=== PATIENT | female | born 1995 | race Caucasian/White ===

== ENCOUNTER 2017-05-16 21:06 | Inpatient (IN) | payer MEDICAID ==
[2017-05-16 21:07] VITALS: BMI 27.1
[2017-05-16] MEDS ORDERED: Sodium Chloride 0.9% 500 ML IV ONE (21:46)
--- NOTE | 2017-05-16 21:52 | C.PDOC ---
History Of Present Illness 21 year old female with PMHx of cholelithiasis presents to the ED c/o abdominal pain. pain intermittant to ruq. Patient denies fever, chills, other complaints. Time Seen by Provider: 05/16/17 21:39 Chief Complaint (Nursing): Medical Clearance History Per: Patient History/Exam Limitations: no limitations Onset/Duration Of Symptoms: Days Current Symptoms Are (Timing): Still Present Recent travel outside of the [place]: No Additional History Per: Patient Past Medical History Reviewed: Historical Data, Nursing Documentation, Vital Signs Vital Signs: Last Vital Signs Temp 98 F 05/16/17 21:21 Pulse 92 H 05/16/17 22:47 Resp 18 05/16/17 22:47 BP 126/65 05/16/17 22:47 Pulse Ox 99 05/16/17 22:47 - Medical History PMH: Asthma Surgical History: No Surg Hx Family History: States: Unknown Family Hx - Social History Hx Alcohol Use: No Hx Substance Use: No - Immunization History Hx Tetanus Toxoid Vaccination: No Hx Influenza Vaccination: No Hx Pneumococcal Vaccination: No Review Of Systems Except As Marked, All Systems Reviewed And Found Negative. Constitutional: Negative for: Fever Gastrointestinal: Positive for: Abdominal Pain Physical Exam - Physical Exam Appears: Non-toxic, No Acute Distress Skin: Normal Color, Warm, Dry Head: Atraumatic, Normacephalic Eye(s): bilateral: Normal Inspection Nose: No Discharge Oral Mucosa: Moist Neck: Normal ROM, Supple Chest: Symmetrical Cardiovascular: Rhythm Regular, No Murmur Respiratory: Normal Breath Sounds, No Rales, No Rhonchi, No Wheezing Gastrointestinal/Abdominal: Soft, Tenderness (Mild RUQ), No Guarding, No Rebound Extremity: Normal ROM, No Tenderness, No Swelling Neurological/Psych: Oriented x3 ED Course And Treatment - Laboratory Results Result Diagrams: 05/16/17 22:08 05/16/17 22:08 O2 Sat by Pulse Oximetry: 100 (On RA) Pulse Ox Interpretation: Normal Medical Decision Making Medical Decision Making: Impression: cholelithiasis- labs imaging Plan: * Labs * EKG * CXR * IV fluids * UA case discussed with dr shen. accepts to his service. Disposition - Disposition Disposition: HOSPITALIZED Disposition Time: 22:52 Condition: STABLE Forms: [employer] (Pakistani) - Clinical Impression Clinical Impression: Cholelithiasis - Scribe Statement The provider has reviewed the documentation as recorded by the Scribe Chon Christianson All medical record entries made by the Scribe were at my direction and personally dictated by me. I have reviewed the chart and agree that the record accurately reflects my personal performance of the history, physical exam, medical decision making, and the department course for this patient. I have also personally directed, reviewed, and agree with the discharge instructions and disposition. Decision To Admit - Pt Status Changed To: Hospital Disposition Of: Inpatient - Admit Certification Admit to Inpatient:: After my assessment, the patient will require hospitalization for at least two midnights. This is because of the severity of symptoms shown, intensity of services needed, and/or the medical risk in this patient being treated as an outpatient. - InPatient: Physician Admission Certification: I certify that this patient requires 2 or more midnights of care for the following reason:: needs possible or - . Bed Request Type: Regular Admitting Physician: Rik Doyle Patient Diagnosis: Cholelithiasis
[2017-05-16] MEDS ORDERED: Piperacillin/Tazobact 3.375 gm 100 ML IVPB STA (21:54)
[2017-05-16 22:11] LABS: BASO # 0.1 K/uL (0.0-0.2); BASO % 0.7 % (0.0-2.0); EOS # 0.1 K/uL (0.0-0.7); EOS % 1.3 % (0.0-4.0); HEMOGLOBIN 13.2 g/dL (11.0-16.0); LYMPH # 3.3 K/uL (1.0-4.3); LYMPH % 32.6 % (20.0-40.0); MEAN CELL VOLUME 84.9 fL (81.0-99.0); MONO # 0.9 K/uL (0.0-0.8); MONO % 8.6 % (0.0-10.0); NEUT # 5.8 K/uL (1.8-7.0); NEUT % 56.8 % (50.0-75.0); RBC 4.71 Mil/uL (3.80-5.20); RED CELL DISTRIBUTION WIDTH 14.1 % (11.5-14.5); WHITE BLOOD COUNT 10.2 K/uL (4.8-10.8)
[2017-05-16] MEDS ORDERED: Sodium Chloride 0.9% 1,000 ML ONE (22:11)
[2017-05-16] MEDS ORDERED: Piperacillin/Tazobact 3.375 gm 100 ML IVPB ONE (22:11)
[2017-05-16 22:13] LABS: HCG,QUALITATIVE URINE NEGATIVE (NEGATIVE)
[2017-05-16 22:17] LABS: SQUAMOUS EPITHIAL 4 /hpf (0-5); URINE BACTERIA OCC (<OCC); URINE BILIRUBIN NEGATIVE (NEGATIVE); URINE BLOOD NEGATIVE (NEGATIVE); URINE CLARITY Hazy (Clear); URINE COLOR Yellow (YELLOW); URINE GLUCOSE (UA) NORMAL (Normal); URINE LEUKOCYTE ESTERASE NEG Leu/uL (Negative); URINE PROTEIN NEGATIVE (NEGATIVE)
[2017-05-16 22:20] LABS: INR 1.1; PROTHROMBIN TIME 12.6 SECONDS (9.7-12.2)
[2017-05-16 22:23] LABS: ALBUMIN 4.3 g/dL (3.5-5.0); ALT/SGPT 30 U/L (9-52); AST/SGOT 24 U/L (14-36); BLOOD UREA NITROGEN 11 mg/dL (7-17); CALCIUM 8.9 mg/dl (8.6-10.4); GFR AFRICAN-AMERICAN > 60; GFR NON-AFRICAN AMERICAN > 60; LIPASE 93 U/L (23-300)
--- NOTE | 2017-05-17 00:29 | CP.PCM.HP ---
<Chaz Leiva D - Last Filed: 05/17/17 04:12> History of Present Illness - History of Present Illness History of Present Illness: H&P for Dr. Doyle 21F presents with abdominal pain that is localized in the right upper quadrant, she has never had this pain before she states. Pain is worse with fatty food intake. She denies nausea, vomiting, fevers, chills. PMH: Asthma PSH: Social: denies tobacco, alcohol and illicit drug use Allergies: morphine Present on Admission - Present on Admission Any Indicators Present on Admission: No Past Patient History - Infectious Disease Hx of Infectious Diseases: None - Past Social History Smoking Status: Never Smoked - PULMONARY Hx Asthma: Yes - PSYCHIATRIC Hx Substance Use: No - SURGICAL HISTORY Hx Section: Yes - ANESTHESIA Hx Anesthesia: Yes Hx Anesthesia Reactions: No Meds Allergies/Adverse Reactions: Allergies Allergy/AdvReac Type Severity Reaction Status Date / Time morphine Allergy RASH Verified 05/16/17 21:27 Physical Exam - Constitutional Appears: Well, Non-toxic, No Acute Distress - Head Exam Head Exam: ATRAUMATIC - Eye Exam Eye Exam: EOMI, PERRL - ENT Exam ENT Exam: Mucous Membranes Moist - Respiratory Exam Respiratory Exam: Clear to Auscultation Bilateral, NORMAL BREATHING PATTERN - Cardiovascular Exam Cardiovascular Exam: REGULAR RHYTHM, +S1, +S2 - GI/Abdominal Exam GI & Abdominal Exam: Soft. absent: Distended, Firm, Guarding, Rebound, Rigid, Tenderness - Neurological Exam Neurological exam: Alert, Oriented x3 - Psychiatric Exam Psychiatric exam: Normal Affect, Normal Mood - Skin Skin Exam: Dry, Intact, Normal Color, Warm Results - Vital Signs Recent Vital Signs: Last Vital Signs Temp 98.2 F 05/16/17 23:23 Pulse 92 H 05/16/17 22:47 Resp 18 05/16/17 22:47 BP 126/65 05/16/17 22:47 Pulse Ox 100 05/16/17 22:52 - Labs Result Diagrams: 05/16/17 22:08 05/16/17 22:08 Labs: Laboratory Results - last 24 hr 05/16/17 05/16/17 05/16/17 22:08 22:08 22:08 WBC 10.2 RBC 4.71 Hgb 13.2 Hct 40.0 MCV 84.9 MCH 28.0 MCHC 33.0 RDW 14.1 Plt Count 393 MPV 9.0 Neut % (Auto) 56.8 Lymph % (Auto) 32.6 [place] % (Auto) 8.6 Eos % (Auto) 1.3 Baso % (Auto) 0.7 Neut # (Auto) 5.8 Lymph # (Auto) 3.3 [place] # (Auto) 0.9 H Eos # (Auto) 0.1 Baso # (Auto) 0.1 PT 12.6 H INR 1.1 APTT 32 Sodium Potassium Chloride Carbon Dioxide Anion Gap BUN Creatinine Est GFR ( Amer) Est GFR (Non-Af Amer) Random Glucose Calcium Total Bilirubin AST ALT Alkaline Phosphatase Total Protein Albumin Globulin Albumin/Globulin Ratio Lipase Urine Color Yellow Urine Clarity Hazy Urine pH 6.0 Ur Specific [place] 1.027 Urine Protein Negative Urine Glucose (UA) Normal Urine Ketones Negative Urine Blood Negative Urine Nitrate Negative Urine Bilirubin Negative Urine Urobilinogen 2.0 H Ur Leukocyte Esterase Neg Urine WBC (Auto) 3 Urine RBC (Auto) 1 Ur Squamous Epith Cells 4 Urine Bacteria Occ H Urine HCG, Qual Negative Blood Type Antibody Screen 05/16/17 05/16/17 22:08 22:08 WBC RBC Hgb Hct MCV MCH MCHC RDW Plt Count MPV Neut % (Auto) Lymph % (Auto) [place] % (Auto) Eos % (Auto) Baso % (Auto) Neut # (Auto) Lymph # (Auto) [place] # (Auto) Eos # (Auto) Baso # (Auto) PT INR APTT Sodium 140 Potassium 3.9 Chloride 103 Carbon Dioxide 26 Anion Gap 15 BUN 11 Creatinine 0.7 Est GFR ( Amer) > 60 Est GFR (Non-Af Amer) > 60 Random Glucose 76 Calcium 8.9 Total Bilirubin 0.6 AST 24 ALT 30 Alkaline Phosphatase 78 Total Protein 8.5 H Albumin 4.3 Globulin 4.1 H Albumin/Globulin Ratio 1.0 Lipase 93 Urine Color Urine Clarity Urine pH Ur Specific [place] Urine Protein Urine Glucose (UA) Urine Ketones Urine Blood Urine Nitrate Urine Bilirubin Urine Urobilinogen Ur Leukocyte Esterase Urine WBC (Auto) Urine RBC (Auto) Ur Squamous Epith Cells Urine Bacteria Urine HCG, Qual Blood Type O POSITIVE Antibody Screen Negative Assessment & Plan - Assessment and Plan (Free Text) Assessment: 21F presents with biliary colic Plan: - preop - IVF - Scheduled for OR later in AM Further recs discuss with Dr. Vivek Leiva, PGY2 <Rik Doyle - Last Filed: 05/19/17 21:25> Results - Vital Signs Recent Vital Signs: Last Vital Signs Temp 98.2 F 05/19/17 08:00 Pulse 79 05/19/17 08:00 Resp 20 05/19/17 08:00 BP 113/74 05/19/17 08:00 Pulse Ox 97 05/19/17 08:00 - Labs Result Diagrams: 05/19/17 07:18 05/19/17 07:18 Labs: Laboratory Results - last 24 hr 05/19/17 05/19/17 07:18 07:18 WBC 7.3 RBC 4.13 Hgb 11.5 Hct 35.3 MCV 85.3 MCH 27.8 MCHC 32.6 L RDW 13.8 Plt Count 281 MPV 9.7 Sodium 139 Potassium 3.6 Chloride 102 Carbon Dioxide 26 Anion Gap 15 BUN 3 L Creatinine 0.6 L Est GFR ( Amer) > 60 Est GFR (Non-Af Amer) > 60 Random Glucose 84 Calcium 8.7 Total Bilirubin 0.9 AST 161 H D ALT 224 H Alkaline Phosphatase 149 H D Total Protein 6.9 Albumin 3.6 Globulin 3.3 Albumin/Globulin Ratio 1.1 Attending/Attestation - Attestation I have personally seen and examined this patient.: Yes I have fully participated in the care of the patient.: Yes I have reviewed all pertinent clinical information: Yes Notes (Text): Pt was seen and examined at bedside Agree with above note and assessment Pt with Severe RUQ pain since last week Pt was seen in ER last week for similar complaints. RUQ tenderness Labs and radiology reviewed Ass: Acute cholecystitis with cholelithiasis Plan: Lap Cholecystectomy possible Open Consent NPO, IVF Plan d.w pt in detail Risk and benefit explained in detail.
[2017-05-17] MEDS ORDERED: Sodium Chloride 0.9% 1,000 ML IV ONE (04:11)
[2017-05-17] MEDS: Bupivacaine HCl 0.25% PF (10 ml) Inj ONE ×2 (09:54→11:09)
[2017-05-17] MEDS: ceFAZolin 1 gm in NS 1 GM/100 ML BAG IVPB ONE ×2 (09:55→10:10)
[2017-05-17] MEDS: Lidocaine/Epinephrine 1% 1:100000 10 ML IJ ONE ×2 (09:55→11:09)
[2017-05-17] MEDS ORDERED: Propofol 10 mg/ml Inj (20 ML) ONE (10:04)
[2017-05-17] MEDS ORDERED: Midazolam 2 MG/2 ML VIAL ONE (10:12)
[2017-05-17] MEDS ORDERED: Neostigmine Methylsulfate 3mg/3ml Syringe IV ONE (11:05)
[2017-05-17] MEDS ORDERED: Lactated Ringer's 1,000 ML IV ONE (11:25)
--- NOTE | 2017-05-17 11:47 | PCM.SURG1 ---
Surgeon's Initial Post Op Note - Surgeon's Notes Surgeon: Dr. Doyle Research Food Technologist: Dr. Patel PGY-3 Type of Anesthesia: General Endo Anesthesia Administered By: Dr. Smith Pre-Operative Diagnosis: Chronic Cholecystitis Operative Findings: See operative report Post-Operative Diagnosis: Same Operation Performed: Laparoscopic Cholecystectomy Specimen/Specimens Removed: Gallbladder Estimated Blood Loss: EBL {In ML}: 10 Blood Products Given: N/A Drains Used: No Drains Post-Op Condition: Good Date of Surgery/Procedure: 05/17/17 Time of Surgery/Procedure: 11:47
[2017-05-17] MEDS: HYDROmorphone 0.5 mg/0.5 ml ISec IVP PRN ×2 (11:57→12:17)
[2017-05-17] MEDS: Oxycodone/Acetaminophen 5/325 mg Tab PO PRN ×2 (14:47→22:49)
[2017-05-17 15:56] VITALS: RESP 20
--- NOTE | 2017-05-18 05:09 | OP ---
PROCEDURE DATE: 05/17/2017 PREOPERATIVE DIAGNOSES: Acute cholecystitis and cholelithiasis. POSTOPERATIVE DIAGNOSES: 1. Acute cholecystitis and cholelithiasis. 2. Postinfectious extensive adhesion. PROCEDURES PERFORMED: 1. Laparoscopic cholecystectomy. 2. Laparoscopic extensive lysis of adhesion. SURGEON: Rik Doyle MD COMMUNITY ARTS OFFICER: Aretha Patel, PGY-3, Resident. TYPE OF ANESTHESIA: General endotracheal tube anesthesia. ESTIMATED BLOOD LOSS: Around 10 mL. DRAINS: None. PATHOLOGY: Gallbladder with a gallstone was sent for the pathology. COMPLICATIONS: None. INTRAOPERATIVE FINDINGS: The patient had acute cholecystitis as well as extensive postinfectious adhesion in the Calot's triangle as well as right upper quadrant due to acute and chronic infection. DESCRIPTION OF PROCEDURE: On intraoperative step, this is a 21-year-old female who was diagnosed with acute cholecystitis and cholelithiasis. The patient was consented for laparoscopic cholecystectomy, possible open, brought to the OR, placed supine on the operating table. After induction of anesthesia, abdomen was prepped and draped in a usual sterile fashion. Supraumbilical transverse incision was made after incising skin and subcutaneous tissue. The fascia was incised in line of incision. Kacy port was placed and pneumoperitoneum was created. A 12-mm port was placed in the midline below costal margin and two 5 mm port was placed in the midclavicular and anterior axillary line. After that, the upper endoscopy was introduced, and the omentum was attached to the gallbladder as well as to the colon and duodenum with blunt and sharp dissection. Extensive lysis of adhesions was done and enterolysis was done. After that, the infundibulum of the gallbladder was identified and it was retracted laterally, gallbladder was retracted cranially, Calot's triangle dissection was done. Cystic duct and cystic artery were identified and clipped at 3 places and cut in between 2 clips in the gallbladder, and gallbladder was dissected free from the gallbladder fossa, taken in an EndoCatch bag, taken out through the umbilical port site, and sent off the table for pathology. There was proper hemostasis in each and every part of the procedure and all the ports were taken out under vision and pneumoperitoneum was deflated. The umbilical port site was closed in two layers, the fascia with 0 Vicryl interrupted suture, skin with a 4-0 Monocryl, and dry sterile dressing was applied. The patient tolerated the procedure well. Counts of the instrument and gauze were correct. There were no apparent complication. The patient was extubated in the OR, sent to the post anesthesia care unit in stable condition. Rik Doyle MD
[2017-05-18] MEDS: Oxycodone/Acetaminophen 5/325 mg Tab PO PRN ×3 (07:01→21:50)
[2017-05-18 14:29] LABS: HEMOGLOBIN 11.7 g/dL (11.0-16.0); MEAN CELL VOLUME 85.2 fL (81.0-99.0); MEAN CORPUSCULAR HEMOGLOBIN 28.1 pg (27.0-31.0); MEAN PLATELET VOLUME 9.4 fL (7.2-11.7); RBC 4.17 Mil/uL (3.80-5.20); RED CELL DISTRIBUTION WIDTH 13.9 % (11.5-14.5); WHITE BLOOD COUNT 6.8 K/uL (4.8-10.8)
[2017-05-18 14:43] LABS: ALBUMIN 3.6 g/dL (3.5-5.0); ALT/SGPT 269 U/L (9-52); AST/SGOT 242 U/L (14-36); BLOOD UREA NITROGEN 4 mg/dL (7-17); CALCIUM 8.6 mg/dl (8.6-10.4); GFR AFRICAN-AMERICAN > 60; GFR NON-AFRICAN AMERICAN > 60
--- NOTE | 2017-05-18 15:25 | CP.PCM.PN ---
<Ramo Oneill - Last Filed: 05/18/17 15:22> Subjective - Date & Time of Evaluation Date of Evaluation: 05/18/17 Time of Evaluation: 15:22 - Subjective Subjective: Surgery Progress note. Dr. Doyle Pt seen and examined this morning and again this afternoon. Patient reports episode of vomiting after breakfast this morning. Denies Fevers or chills. Reports RUQ abdominal pain. Also reports itching after using cleaning wipe this morning. States that she has a small child at home and would like to stay in the hospital one more day prior to discharge. Objective - Vital Signs/Intake and Output Vital Signs (last 24 hours): Temp Pulse Resp BP Pulse Ox 98.0 F 72 20 113/71 97 05/18/17 14:04 05/18/17 14:04 05/18/17 08:00 05/18/17 14:04 05/18/17 08:00 Intake and Output: 05/18/17 05/18/17 06:59 18:59 Intake Total 720 Balance 720 - Medications Medications: Current Medications Ibuprofen (Motrin Tab) 400 mg PO Q8 PRN PRN Reason: Pain, moderate (4-7) Last Admin: 05/17/17 15:16 Dose: 400 mg Oxycodone/Acetaminophen (Percocet 5/325 Mg Tab) 1 tab PO Q4H PRN PRN Reason: Pain, Mild (1-3) Stop: 05/20/17 11:49 Last Admin: 05/18/17 14:05 Dose: 1 tab - Labs Labs: 05/18/17 14:24 05/18/17 14:24 PT 12.6 SECONDS (9.7-12.2) H 05/16/17 22:08 INR 1.1 05/16/17 22:08 APTT 32 SECONDS (21-34) 05/16/17 22:08 - Constitutional Appears: Well, Non-toxic, No Acute Distress - Head Exam Head Exam: ATRAUMATIC, NORMAL INSPECTION, NORMOCEPHALIC - Eye Exam Eye Exam: EOMI, Normal appearance. absent: Scleral icterus - ENT Exam ENT Exam: Mucous Membranes Moist - Respiratory Exam Respiratory Exam: NORMAL BREATHING PATTERN. absent: Accessory Muscle Use, Respiratory Distress - Cardiovascular Exam Cardiovascular Exam: RRR - GI/Abdominal Exam GI & Abdominal Exam: Soft. absent: Distended, Firm, Guarding, Rigid, Rebound Additional comments: RUQ tenderness. Incisions intact. Dressings clean and dry. - Extremities Exam Extremities Exam: Normal Inspection. absent: Calf Tenderness - Neurological Exam Neurological Exam: Alert, Awake, Oriented x3 Assessment and Plan - Assessment and Plan (Free Text) Assessment: 21yo F s/p lap cholecystectomy. POD 1 Plan: - f/u Repeat AM labs - pain management - Encourage OOBTC, Ambulation, IS use Further recs as per Dr. Vivek Oneill PGY1 surgery pager: [phone] <Rik Doyle - Last Filed: 05/19/17 21:26> Objective - Vital Signs/Intake and Output Vital Signs (last 24 hours): Temp Pulse Resp BP Pulse Ox 98.2 F 79 20 113/74 97 05/19/17 08:00 05/19/17 08:00 05/19/17 08:00 05/19/17 08:00 05/19/17 08:00 Intake and Output: 05/19/17 05/20/17 18:59 06:59 Intake Total 480 Balance 480 - Medications Medications: Current Medications Docusate Sodium (Colace) 100 mg PO TID CARTER Last Admin: 05/19/17 17:37 Dose: 100 mg Ibuprofen (Motrin Tab) 400 mg PO Q8 PRN PRN Reason: Pain, moderate (4-7) Last Admin: 05/19/17 16:11 Dose: 400 mg Oxycodone/Acetaminophen (Percocet 5/325 Mg Tab) 1 tab PO Q4H PRN PRN Reason: Pain, Mild (1-3) Stop: 05/20/17 11:49 Last Admin: 05/19/17 06:49 Dose: 1 tab - Labs Labs: 05/19/17 07:18 05/19/17 07:18 PT 12.6 SECONDS (9.7-12.2) H 05/16/17 22:08 INR 1.1 05/16/17 22:08 APTT 32 SECONDS (21-34) 05/16/17 22:08 Attending/Attestation - Attestation I have personally seen and examined this patient.: Yes I have fully participated in the care of the patient.: Yes I have reviewed all pertinent clinical information, including history, physical exam and plan: Yes Notes (Text): Pt was seen and examined at bedside Agree with above note and assessment Pt is improving Repeat LFTs in am DC in am Fleet enema Plan d.w pt in detail Risk and benefit explained in detail.
[2017-05-19] MEDS: Oxycodone/Acetaminophen 5/325 mg Tab PO PRN (06:49)
[2017-05-19 07:24] LABS: HEMOGLOBIN 11.5 g/dL (11.0-16.0); MEAN CELL VOLUME 85.3 fL (81.0-99.0); MEAN CORPUSCULAR HEMOGLOBIN 27.8 pg (27.0-31.0); MEAN CORPUSCULAR HGB CONC 32.6 g/dL (33.0-37.0); MEAN PLATELET VOLUME 9.7 fL (7.2-11.7); RBC 4.13 Mil/uL (3.80-5.20); RED CELL DISTRIBUTION WIDTH 13.8 % (11.5-14.5); WHITE BLOOD COUNT 7.3 K/uL (4.8-10.8)
[2017-05-19] MEDS ORDERED: POLYETHYLENE GLYCOL 3350 17 GM/Dose PACKET PO ONE ×2 (07:37→09:15)
[2017-05-19 07:47] LABS: ALB/GLOB RATIO 1.1 (1.0-2.1); ALBUMIN 3.6 g/dL (3.5-5.0); ALT/SGPT 224 U/L (9-52); AST/SGOT 161 U/L (14-36); BLOOD UREA NITROGEN 3 mg/dL (7-17); CALCIUM 8.7 mg/dl (8.6-10.4); GFR AFRICAN-AMERICAN > 60; GFR NON-AFRICAN AMERICAN > 60
--- NOTE | 2017-05-19 14:59 | CP.PCM.DIS ---
Provider - Provider Date of Admission: 05/16/17 22:50 Attending physician: Rik Doyle MD Time Spent in preparation of Discharge (in minutes): 5 Hospital Course - Lab Results Lab Results: Most Recent Lab Values WBC 7.3 K/uL (4.8-10.8) 05/19/17 07:18 RBC 4.13 Mil/uL (3.80-5.20) 05/19/17 07:18 Hgb 11.5 g/dL (11.0-16.0) 05/19/17 07:18 Hct 35.3 % (34.0-47.0) 05/19/17 07:18 MCV 85.3 fL (81.0-99.0) 05/19/17 07:18 MCH 27.8 pg (27.0-31.0) 05/19/17 07:18 MCHC 32.6 g/dL (33.0-37.0) L 05/19/17 07:18 RDW 13.8 % (11.5-14.5) 05/19/17 07:18 Plt Count 281 K/uL (130-400) 05/19/17 07:18 MPV 9.7 fL (7.2-11.7) 05/19/17 07:18 Neut % (Auto) 56.8 % (50.0-75.0) 05/16/17 22:08 Lymph % (Auto) 32.6 % (20.0-40.0) 05/16/17 22:08 [place] % (Auto) 8.6 % (0.0-10.0) 05/16/17 22:08 Eos % (Auto) 1.3 % (0.0-4.0) 05/16/17 22:08 Baso % (Auto) 0.7 % (0.0-2.0) 05/16/17 22:08 Neut # (Auto) 5.8 K/uL (1.8-7.0) 05/16/17 22:08 Lymph # (Auto) 3.3 K/uL (1.0-4.3) 05/16/17 22:08 [place] # (Auto) 0.9 K/uL (0.0-0.8) H 05/16/17 22:08 Eos # (Auto) 0.1 K/uL (0.0-0.7) 05/16/17 22:08 Baso # (Auto) 0.1 K/uL (0.0-0.2) 05/16/17 22:08 PT 12.6 SECONDS (9.7-12.2) H 05/16/17 22:08 INR 1.1 05/16/17 22:08 APTT 32 SECONDS (21-34) 05/16/17 22:08 Sodium 139 mmol/L (132-148) 05/19/17 07:18 Potassium 3.6 mmol/L (3.6-5.2) 05/19/17 07:18 Chloride 102 mmol/L (98-107) 05/19/17 07:18 Carbon Dioxide 26 mmol/L (22-30) 05/19/17 07:18 Anion Gap 15 (10-20) 05/19/17 07:18 BUN 3 mg/dL (7-17) L 05/19/17 07:18 Creatinine 0.6 mg/dL (0.7-1.2) L 05/19/17 07:18 Est GFR ( Amer) > 60 05/19/17 07:18 Est GFR (Non-Af Amer) > 60 05/19/17 07:18 Random Glucose 84 mg/dL (65-105) 05/19/17 07:18 Calcium 8.7 mg/dl (8.6-10.4) 05/19/17 07:18 Total Bilirubin 0.9 mg/dL (0.2-1.3) 05/19/17 07:18 AST 161 U/L (14-36) H D 05/19/17 07:18 ALT 224 U/L (9-52) H 05/19/17 07:18 Alkaline Phosphatase 149 U/L (38-126) H D 05/19/17 07:18 Total Protein 6.9 g/dL (6.3-8.3) 05/19/17 07:18 Albumin 3.6 g/dL (3.5-5.0) 05/19/17 07:18 Globulin 3.3 gm/dL (2.2-3.9) 05/19/17 07:18 Albumin/Globulin Ratio 1.1 (1.0-2.1) 05/19/17 07:18 Lipase 93 U/L (23-300) 05/16/17 22:08 Urine Color Yellow (YELLOW) 05/16/17 22:08 Urine Clarity Hazy (Clear) 05/16/17 22:08 Urine pH 6.0 (5.0-8.0) 05/16/17 22:08 Ur Specific [place] 1.027 (1.003-1.030) 05/16/17 22:08 Urine Protein Negative mg/dL (NEGATIVE) 05/16/17 22:08 Urine Glucose (UA) Normal mg/dL (Normal) 05/16/17 22:08 Urine Ketones Negative mg/dL (NEGATIVE) 05/16/17 22:08 Urine Blood Negative (NEGATIVE) 05/16/17 22:08 Urine Nitrate Negative (NEGATIVE) 05/16/17 22:08 Urine Bilirubin Negative (NEGATIVE) 05/16/17 22:08 Urine Urobilinogen 2.0 mg/dL (0.2-1.0) H 05/16/17 22:08 Ur Leukocyte Esterase Neg [place]/uL (Negative) 05/16/17 22:08 Urine WBC (Auto) 3 /hpf (0-5) 05/16/17 22:08 Urine RBC (Auto) 1 /hpf (0-3) 05/16/17 22:08 Ur Squamous Epith Cells 4 /hpf (0-5) 05/16/17 22:08 Urine Bacteria Occ (<OCC) H 05/16/17 22:08 Urine HCG, Qual Negative (NEGATIVE) 05/16/17 22:08 Blood Type O POSITIVE 05/16/17 22:08 Antibody Screen Negative 05/16/17 22:08 - Hospital Course Hospital Course: 21F who presented for abdominal pain 2/2 cholelithiasis and was taken to OR the next day for lap yasmin. Pt tolerated the surgery well but due to abdominal pain was kept the following day. Pt doing well this AM with no complaints. States pain is well controlled. Will DC home with f/u in the office. Discharge Exam - Head Exam Head Exam: ATRAUMATIC, NORMAL INSPECTION, NORMOCEPHALIC - Eye Exam Eye Exam: Normal appearance - ENT Exam ENT Exam: Mucous Membranes Moist - Respiratory Exam Respiratory Exam: NORMAL BREATHING PATTERN - Cardiovascular Exam Cardiovascular Exam: RRR - GI/Abdominal Exam GI & Abdominal Exam: Soft, Tenderness. absent: Distended - Neurological Exam Neurological exam: Alert, Oriented x3 - Skin Skin Exam: Dry, Intact Discharge Plan - Follow Up Plan Condition: GOOD Disposition: HOME/ ROUTINE Instructions: Gallstones (DC) Additional Instructions: 1. Follow up with Dr. Doyle in office. Call for appointment 2. Use OTC Tylenol or Ibuprofen for pain management 3. You may shower, no bathing or soaking. Leave steristrips in place until they fall off on their own 4. Use OTC stool softeners as needed. (Colace) Referrals: Rik Doyle MD [Staff Provider] -
[2017-05-20 08:08] VITALS: BP 115/70; PULSE 71; TEMP 98.3; O2SAT 98
[2017-05-20] MEDS: Oxycodone/Acetaminophen 5/325 mg Tab PO PRN (08:40)
== END 2017-05-20 10:15 | disposition home or self-care (01) | DRG 494 ==
LOC: C.ER 21:06 → C.3T 22:50
PROVIDERS: ADMIT Surgery Surgical Critical Care; ATTEND Surgery Surgical Critical Care
PROC: 0DNW4ZZ Release Peritoneum, Percutaneous Endoscopic Approach (ICD-10-PCS; 2017-05-17)
PROC: 0FT44ZZ Resection of Gallbladder, Percutaneous Endoscopic Approach (ICD-10-PCS; principal; 2017-05-17 17:00)
DX: K80.12 Calculus of gallbladder with acute and chronic cholecystitis without obstruction (principal); K66.0 Peritoneal adhesions (postprocedural) (postinfection); K82.8 Other specified diseases of gallbladder